=== PATIENT | female | born 1995 | race Hispanic/Latino ===

== ENCOUNTER 2024-06-05 19:25 | Emergency (ER) | payer OTHER ==
[~2024-06-05] VITALS: Ht 172.7 cm; Wt 77.2 kg
[2024-06-05] MEDS ORDERED: propofoL 200 MG/20 ML VIAL IV ONE (19:30)
[2024-06-05] MEDS ORDERED: fentaNYL citrate 100 MCG/2 ML VIAL IV ONE (19:45)
[2024-06-05 21:45] VITALS: BP 123/74
== END 2024-06-05 21:02 | disposition other institution, planned readmission (95) ==
LOC: ED 19:25
DX: M24.411 Recurrent dislocation, right shoulder (principal)
CPT/HCPCS: 23650; 73030; 99283-25; J2704; J3010